=== PATIENT | female | born 1960 | race African-American/Black ===

== ENCOUNTER 2019-03-19 19:32 | Emergency (ER) | payer OTHER ==
[2019-03-19 20:04] VITALS: BMI 29.5
--- NOTE | 2019-03-19 20:05 | PDOC ---
History of Present Illness - General Chief Complaint: Blood Pressure Problem Stated Complaint: HIGH BLOOD PRESSURE Time Seen by Provider: 03/19/19 20:00 - History of Present Illness Initial Comments: 03/19/19 20:02 58 yo F with h/o HTN who p/w lightheadedness. Pt. reports acute onset of lightheadedness 30 minutes prior to arrival. Patient reports feeling "faint," with no identifiable alleviators. Worse with ambulation, and position change. Symptom continually present. 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 Denies h/o similar presentation. BP controlled with Amolidipine 10 mg daily. Patient denies FUENTES, vertigo, tinnitus, hearing loss, slurred speech, vision change, palpitations, cough, wheezing, orthopena, PND, leg swelling/pain, N/V, F ,C, CP, SOB, urinary complaints, hematuria, BPR, abdominal pain, diarrhea, constipation, weakness . PMHx: as noted above. Denies h/o CVA/TIA. ROS: as noted SHx: Denies Etoh, IVDA, tobacco use Allergies: NKDA PMD: Dr. Nicole, [facility] Past History - Past Medical History Allergies/Adverse Reactions: Allergies Allergy/AdvReac Type Severity Reaction Status Date / Time No Known Allergies Allergy Verified 03/19/19 19:55 Home Medications: Ambulatory Orders Amlodipine Besylate [Norvasc -] 10 mg PO DAILY 03/19/19 Hydrochlorothiazide 12.5 mg PO DAILY #30 tablet MDD 1 tab 03/19/19 Valsartan [Diovan] 40 mg PO DAILY #30 tablet 03/20/19 Cancer: No Cardiac Disorders: No CVA: No COPD: No CHF: No HTN: Yes - Surgical History Abdominal Surgery: Yes (A/P) - Suicide/Smoking/Psychosocial Hx Smoking History: Never smoked Hx Alcohol Use: No Drug/Substance Use Hx: No Review of Systems - Review of Systems Comments:: 03/19/19 20:04 GENERAL/CONSTITUTIONAL: No fever or chills. No weakness. HEAD, EYES, EARS, NOSE AND THROAT: No change in vision. No ear pain or discharge. No sore throat. CARDIOVASCULAR: No chest pain or shortness of breath RESPIRATORY: No cough, wheezing, or hemoptysis. GASTROINTESTINAL: No nausea, vomiting, diarrhea or constipation. GENITOURINARY: No dysuria, frequency, or change in urination. MUSCULOSKELETAL: No joint or muscle swelling or pain. No neck or back pain. SKIN: No rash NEUROLOGIC:+ Change in sensation No headache, vertigo, loss of consciousness, or change in strength. ENDOCRINE: No increased thirst. No abnormal weight change HEMATOLOGIC/LYMPHATIC: No anemia, easy bleeding, or history of blood clots. ALLERGIC/IMMUNOLOGIC: No hives or skin allergy. *Physical Exam - Vital Signs Last Vital Signs Temp Pulse Resp BP Pulse Ox 98.2 F 97 H 20 203/129 H 100 03/19/19 19:57 03/19/19 19:57 03/19/19 19:57 03/19/19 19:57 03/19/19 19:57 - Physical Exam Comments: 03/19/19 20:04 GENERAL: Awake, alert, and fully oriented, in no acute distress HEAD: No signs of trauma, normocephalic, atraumatic EYES: PERRLA, EOMI, sclera anicteric, conjunctiva clear ENT: Auricles normal inspection, hearing grossly normal, nares patent, oropharynx clear without exudates. Moist mucosa NECK: Normal ROM, supple, no lymphadenopathy, JVD, or masses LUNGS: No distress, speaks full sentences, clear to auscultation bilaterally HEART: Regular rate and rhythm, normal S1 and S2, no murmurs, rubs or gallops, peripheral pulses normal and equal bilaterally. ABDOMEN: Soft, nontender, normoactive bowel sounds. No guarding, no rebound. No masses EXTREMITIES : Normal inspection, Normal range of motion, no edema. No clubbing or cyanosis. NEUROLOGICAL: Cranial nerves II through XII grossly intact. Normal speech, normal gait, no focal sensorimotor deficits. Neg dysmetria on FTN. Nml YEN. SKIN: Warm, Dry, normal turgor, no rashes or lesions noted ED Treatment Course - LABORATORY CBC & Chemistry Diagram: 03/19/19 20:37 03/19/19 20:37 - ADDITIONAL ORDERS Additional order review: 03/19/19 22:45 Patient Information: : 1960 Order Type: Preliminary Name: LENA MELGAR Sex: F Study Description: CT HEAD Modality: CT Location: [facility] Referring Physician: ASHLEY CARPIO Comments: Adam Ariza MD wrote on Mar 19, 2019 at 09:11 PM: Referring Physician: ASHLEY CARPIO Patient Name: TALIA PAREDES THIS IS A PRELIMINARY REPORT FROM [facility] DATE OF SERVICE: 2019-03-19 20:44:56 IMAGES: 140 EXAM: CT head without contrast HISTORY: Lightheaded COMPARISON: None. FINDINGS: There is no evidence of acute infarction. There is no hemorrhage. No mass lesion is seen. There is no skull fracture. CONFIDENTIALITY NOTICE: This information is intended only for the use of the recipient(s) named above. If you are not the intended recipient, or a person responsible for delivering it to the intended recipient, you are hereby notified that any disclosure, copying, distribution or use of any of the information contained in or attached to this transmission is STRICTLY PROHIBITED. If you have received this transmission in error, please immediately notify Imaging Manager Hair and destroy the original transmission and its attachments without saving them in any manner [address] [place] [address] [place] [address] Phone: [phone] Fax: Email: [email or web address] Patient Information: : 1960 Order Type: Preliminary Name: LENA MELGAR Sex: F Study Description: CT HEAD Modality: CT Location: [facility] Referring Physician: ASHLEY CARPIO Visualized portions of the paranasal sinuses are essentially clear. Mastoid air cells are normally pneumatized. One or more of the following dose reduction techniques were used: automated exposure control, adjustment of the mA and/or kV according to patient size, use of iterative reconstructive technique. THIS DOCUMENT HAS BEEN ELECTRONICALLY SIGNED Adam Ariza MD 03/19/2019 21:10 REAGAN MRony Please call Imaging Manager Hair [phone]) with questions. Adam Ariza MD Clinicians - Please contact Imaging Manager Hair with further questions at [phone] Patients - Please contact your Ordering Provider with questions. Medical Decision Making - Medical Decision Making 03/19/19 20:04 58 yo F with h/o HTN who p/w lightheadedness and left distal extremity tingling. BP 203/129, HR 97, vitals otherwise wnl, AF, A&Ox3. Physical exam unremarkable. Will assess for signs of end organ dysfunction/HTN emergency. Will assess for VBI/TIA, cardiac dysarrythmias, hypoglycemia, electrolyte abnml , metabolic and toxic derangements, acid-base disturbances, infection. ED Course: HCTZ, Valsartan 03/19/19 22:45 CTH: There is no evidence of acute infarction. There is no hemorrhage. No mass lesion is seen. There is no skull fracture. 03/19/19 22:46 Laboratory Tests 03/19/19 03/19/19 03/19/19 20:37 20:37 20:37 WBC 5.9 Hgb 12.8 Hct 39.2 BUN 11.5 Creatinine 0.8 CK-MB (CK-2) < 1.0 Troponin I < 0.02 03/19/19 23:20 Selected Entries 03/19/19 03/19/19 20:19 21:01 Blood Pressure 184/115 H 176/116 H [Right Arm] 03/19/19 23:22 EKG: NSR with absent JACK, STD. Q waves V2,V3. Nml interval duration and axis. Nml R waver progression. 03/19/19 23:25 lightheadedness, resolved. Patient with absent complaints. Advised to f/u PMD. Valsartan 40 mg *DC/Admit/Observation/Transfer Diagnosis at time of Disposition: Asymptomatic hypertension - Discharge Dispostion Condition at time of disposition: Stable Decision to Admit order: No - Prescriptions Prescriptions: Hydrochlorothiazide 12.5 mg PO DAILY #30 tablet MDD 1 tab Valsartan [Diovan] 40 mg PO DAILY #30 tablet - Referrals Referrals: Maine [facility] [Primary Care Provider] - - Patient Instructions Printed Discharge Instructions: DI for High Blood Pressure Additional Instructions: Please return to the emergency department with any new or worsening symptoms or concerns. Please follow up with your primary care physician within 72 hours. - Post Discharge Activity
[2019-03-19] MEDS ORDERED: HYDROCHLOROTHIAZIDE 25 MG TABLET (FP) PO ONE (20:11)
[2019-03-19] MEDS ORDERED: VALSARTAN 40 MG TABLET (FP) PO ONE ×2 (20:11→23:41)
[2019-03-19] MEDS ORDERED: VALSARTAN 80 MG TABLET (UD) ONE (20:13)
[2019-03-19] MEDS ORDERED: HYDROCHLOROTHIAZIDE 25 MG TABLET (FP) ONE (20:13)
[2019-03-19 20:52] LABS: BASO % 0.5 % (0-2.0); EOS % 1.2 % (0-4.5); HEMATOCRIT 39.2 % (32.4-45.2); HEMOGLOBIN 12.8 GM/dL (10.7-15.3); LYMPH % 45.6 % (8-40); MCH 26.5 pg (25.7-33.7); MCHC 32.6 g/dl (32.0-36.0); MEAN CELL VOLUME 81.3 fl (80-96); NEUT % 41.7 % (42.8-82.8); RBC 4.82 M/mm3 (3.60-5.2); RDW 15.6 % (11.6-15.6); WHITE BLOOD COUNT 5.9 K/mm3 (4.0-10.0)
[2019-03-19 21:12] LABS: ALBUMIN 3.5 g/dl (3.4-5.0); BILIRUBIN,TOTAL 0.2 mg/dL (0.2-1); BLOOD UREA NITROGEN 11.5 mg/dL (7-18); CALCIUM 8.8 mg/dL (8.5-10.1); CREATININE 0.8 mg/dL (0.55-1.3); POTASSIUM 3.4 mmol/L (3.5-5.1); TOT PROT 7.4 g/dl (6.4-8.2)
[2019-03-19 22:51] LABS: MEAN PLT VOLUME 9.7 fl (7.5-11.1); PLATELET COUNT 149 K/MM3 (134-434)
[2019-03-19] MEDS ORDERED: amLODIPine BESYLATE 10 MG TABLET (FP) PO ONE (23:31)
--- NOTE | 2019-03-19 23:45 | PDOC ---
Documentation entered by Alie Ahn SCRIBE, acting as scribe for Maris Nicole MD. Maris Nicole MD: This documentation has been prepared by the Jimy bae Mackenzie, SCRIBE, under my direction and personally reviewed by me in its entirety. I confirm that the documentation accurately reflects all work, treatment, procedures, and medical decision making performed by me. 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 Patient reports feeling a sudden onset of lightheadedness while at rest, which has since been constant and not alleviated by anything. Patient states the lightheadedness is worse with ambulation. 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 Patient notes being stressed lately. The patient denies vertigo, tinnitus, hearing loss, slurred speech, vision change, palpitations, chest pain, shortness of breath, and headache. Denies fever, chills, nausea, vomiting, diarrhea and constipation. Denies dysuria, frequency, urgency and hematuria. Allergies: NKDA Past surgical history: As per resident note. Social history: Denies drug and tobacco use. PCP:ESTEBAN Bang [facility] 03/19/19 23:44 - Physicial Exam PE: GENERAL: Awake, alert, and fully oriented, in no acute distress HEAD: No signs of trauma EYES: PERRLA, EOMI, sclera anicteric, conjunctiva clear ENT: Auricles normal inspection, hearing grossly normal, nares patent, oropharynx clear without exudates. Moist mucosa NECK: Normal ROM, supple, no lymphadenopathy, JVD, or masses LUNGS: Breath sounds equal, clear to auscultation bilaterally. No wheezes, and no crackles HEART: Regular rate and rhythm, normal S1 and S2, no murmurs, rubs or gallops ABDOMEN: Soft, nontender, normoactive bowel sounds. No guarding, no rebound. No masses EXTREMITIES: Normal range of motion, no edema. No clubbing or cyanosis. No cords, erythema, or tenderness NEUROLOGICAL: Cranial nerves II through XII grossly intact. Normal speech, normal gait SKIN: Warm, Dry, normal turgor, no rashes or lesions noted. 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 FINDINGS: There is no evidence of acute infarction. There is no hemorrhage. No mass lesion is seen. There is no skull fracture. Visualized portions of the paranasal sinuses are essentially clear. Mastoid air cells are normally pneumatized. 03/20/19 00:19 BP was 180/100; now after a 2nd dose of diovan, pt is down ay 170/93. We will watch and wait for meds to take effect and pt will be d/c'd as she is refusing to stay in the hospital. Pt wants to follow outpatient. Adamant that she has no CP and that she has no SOB and that she simply has hand tingling. Pt normally runs systolic BP of 130-140s. 03/20/19 03:53 Pt works at [employer], and that is where her docs are; she will follow with her docs and she will be given an rx of diovan x 30 days supply.
[2019-03-20] MEDS ORDERED: amLODIPine BESYLATE 5 MG TABLET (FP) ONE
[2019-03-20] MEDS ORDERED: VALSARTAN 80 MG TABLET (UD) ONE ×2 (00:01)
[2019-03-20 01:01] VITALS: TEMP 98.1
[2019-03-20 03:20] VITALS: BP 164/102; PULSE 87
--- NOTE | 2019-03-20 13:07 | EKG ---
Test Reason : Blood Pressure : / mmHG Vent. Rate : 082 BPM Atrial Rate : 082 BPM P-R Int : 198 ms QRS Dur : 090 ms QT Int : 404 ms P-R-T Axes : 047 -11 022 degrees QTc Int : 472 ms NORMAL SINUS RHYTHM POSSIBLE ANTERIOR INFARCT , AGE UNDETERMINED RSR' OR QR PATTERN IN V1 SUGGESTS RIGHT VENTRICULAR CONDUCTION DELAY ABNORMAL ECG NO PREVIOUS ECGS AVAILABLE Confirmed by MARGIE TORO MD ([id number]) on 03/20/2019 1:07:27 PM Referred By: Confirmed By:MARGIE TORO MD
== END 2019-03-20 03:40 | disposition home or self-care (01) ==
LOC: JER 19:32
DX: I10 Essential (primary) hypertension (principal)
CPT/HCPCS: 36415; 70450-TC; 80053; 82550; 82553; 84484; 85025; 93005; 93010; 99282-25